=== PATIENT | female | born 1955 | race Two or more races ===

== ENCOUNTER 2018-06-16 08:50 | Outpatient (CLI) | payer OTHER | END 2018-06-16 09:00 | disposition home or self-care (01) | LOC: RX STUDY 08:50 | DX: R13.13 Dysphagia, pharyngeal phase (principal) ==

== ENCOUNTER → 2020-08-17 | Outpatient (CLI) | payer OTHER | END | disposition home or self-care (01) | LOC: RX STUDY 08:30 | PROVIDERS: ATTEND Internal Medicine | DX: R13.10 Dysphagia, unspecified (principal) ==